=== PATIENT | male | born 1955 | race Caucasian/White ===

== ENCOUNTER 2017-10-16 08:44 | Emergency (ER) | payer OTHER ==
[~2017-10-16] VITALS: Ht 177.8 cm; Wt 72.6 kg
== END 2017-10-16 13:06 | disposition home or self-care (01) ==
LOC: ER 08:44
DX: K64.8 Other hemorrhoids (principal)

== ENCOUNTER 2017-12-04 07:59 | Outpatient (CLI) | payer OTHER | END 2017-12-04 08:09 | disposition home or self-care (01) | LOC: LAB 07:59 | DX: K62.5 Hemorrhage of anus and rectum (principal); K64.5 Perianal venous thrombosis; K62.89 Other specified diseases of anus and rectum; K59.09 Other constipation ==